=== PATIENT | male | born 1990 | race Two or more races ===

== ENCOUNTER 2019-02-24 21:44 | Emergency (ER) | payer SELFPAY ==
[~2019-02-24] VITALS: Ht 167.6 cm; Wt 81.6 kg
[2019-02-24 23:16] VITALS: BP 136/87
[2019-02-24] MEDS ORDERED: BACLOFEN 10 MG TAB PO ONE (23:30)
[2019-02-24] MEDS ORDERED: DexAMETHasone SOD PHOS 10MG/1ML VIAL INJ IM ONE (23:30)
[2019-02-24] MEDS ORDERED: HYDROcodone-ACET 10/325MG TAB PO ONE (23:30)
== END 2019-02-25 00:08 | disposition home or self-care (01) ==
LOC: ER 21:44
DX: M62.838 Other muscle spasm (principal); M25.511 Pain in right shoulder
CPT/HCPCS: 73030; 96372; 99283; J1100